=== PATIENT | female | born 1935 | race Caucasian/White ===

== ENCOUNTER 2016-05-25 12:08 | Inpatient (IN) | payer BC, OTHER ==
--- NOTE | ~2016-05-25 | CN ---
Consultation Report [facility] [address] [place]. [address] NAME: NAV OCONNOR : 37 STATUS : ADM IN [facility]#: [id number] AGE: 81 ADM/REG DATE : 05/25/16 MR#: [id number] REPORT SERV DATE: 05/29/16 DICTATED BY: ADRIANA DOE DATE: 05/29/16 REPORT STATUS : Draft TRANSCRIBED BY: MODL DATE: 05/29/16 INFECTIOUS DISEASE CONSULTATION DATE OF CONSULTATION: 05/29/2016 REASON FOR CONSULTATION: Positive blood cultures. HISTORY OF PRESENT ILLNESS: This is an 81-year-old female with a past medical history notable for oxygen-dependent COPD, coronary artery disease with previous stents, hypertension, known mitral regurgitation, hyperlipidemia, and congestive heart failure. She was brought to the emergency department at [facility] on 05/25/2016 with left chest pain and shortness of breath for about three days. The pain involves her anterior and posterior chest and neck and was somewhat pleuritic. The patient underwent CT angiography of the chest, which demonstrated a large left lower lobe pulmonary emboli. There was a minimal airspace disease in the lingula and posterior aspect of the left lower lobe along with some mildly enlarged mediastinal and hilar lymph nodes compared to 12/2010. The patient was placed on anticoagulation. Her procalcitonin on admission was less than 0.05 and her white blood cell count was 8.5. She did have a temperature of 99.9. Her admission blood cultures returned with both sets positive for gram-positive cocci in clusters, and she was started on vancomycin on 05/27/2016 along with ceftriaxone. These have been identified as Staph hominis, oxacillin resistant. The patient has had no fever since admission. Her white blood cell count is normal. She does have an episodic cough, sometimes productive of small clots. Overall, she feels better than on admission. She denies any recent skin or soft tissue infection such as boils, abscesses, or cellulitis and denies any problems with previous IV sites on old admissions. PAST MEDICAL HISTORY: As outlined above. In addition, there is a history of restless legs syndrome. She has had an appendectomy, cholecystectomy, tubal surgery, hysterectomy, and right ankle surgery. She has no hardware other than her stents. ALLERGIES: INCLUDE LITHIUM AND NAPROXEN. PRESENT MEDICATIONS: In addition to vancomycin include Eliquis, aspirin, Coreg, Klonopin, Imdur, Prinivil, melatonin, Solu-Medrol 125 mg IV q.6 hours, Habitrol, Roxicodone, Protonix, Pravachol, Desyrel, and Effexor XR. The ceftriaxone has been discontinued. SOCIAL HISTORY: Past smoker. Nondrinker. She lives with her daughter and grandson. FAMILY HISTORY: Notable for breast and ovarian cancer. REVIEW OF SYSTEMS: No nausea, vomiting, diarrhea, or genitourinary symptoms. She states that she did have some anorexia, and prior to admission, she has had a little bit of an episodic headache nothing severe. Consultation Report [place] [id number] [facility] [place]. [address] NAME: NAV OCONNOR : 37 STATUS : ADM IN [facility]#: [id number] AGE: 81 ADM/REG DATE : 05/25/16 MR#: [id number] REPORT SERV DATE: 05/29/16 DICTATED BY: ADRIANA DOE DATE: 05/29/16 REPORT STATUS : Draft TRANSCRIBED BY: BARRINGTON DATE: 05/29/16 PHYSICAL EXAMINATION: VITAL SIGNS: The patient weighs 57 kg. She is afebrile. Blood pressure 170/74, pulse 78, and respiratory rate 18. GENERAL: She is alert, pleasant, no acute distress at all. HEAD AND NECK: Exam shows normal conjunctivae without petechiae. The oral cavity is clear. Neck is supple. No adenopathy. LUNGS: Clear to auscultation. CARDIAC: Regular rate and rhythm. There is a 2/6 systolic murmur heard at left sternal border and aortic area. No rub. ABDOMEN: Soft, nontender. Bowel sounds are present. EXTREMITIES: Show no stigmata of endocarditis. The patient has a peripheral IV without phlebitis. SKIN: Without rash. LABORATORY STUDIES: White blood cell count 6.8, hemoglobin 10.9, platelets 210. Creatinine 0.86. Liver function tests on admission were normal. Blood cultures were repeated on , although this was after antibiotics were started, and those are negative. Urinalysis on admission negative. Influenza screen on admission negative. IMAGING STUDIES: As noted. IMPRESSION: I believe the positive blood cultures for Staphylococcus hominis are most likely contaminants. These were drawn in the emergency department. The time of collection is different on the two sets, but I am not convinced there from two separate sticks. More importantly, her history is not really strongly suggestive that she came in with bacteremia/sepsis, and she does not really have a clear predisposition or risk factors to have true coagulase-negative Staphylococcal sepsis. She does have a murmur, but this is old, and she has no known mitral regurgitation. Overall, I doubt endocarditis. Also, I do not think she has pneumonia. PLAN: 1. We will discontinue the vancomycin. 2. Await echocardiogram report. 3. Consider tapering her steroids. 4. If she develops any signs or symptoms of infection off antibiotics, we can repeat blood cultures at that time. ALE/BARRINGTON Adriana Doe M.D. Consultation Report [address] [address] NAME: NAV OCONNOR : 36 STATUS : ADM IN PAT#: [id number] AGE: 81 ADM/REG DATE : 05/25/16 MR#: [id number] REPORT SERV DATE: 05/29/16 DICTATED BY: ADRIANA DOE DATE: 05/29/16 REPORT STATUS : Draft TRANSCRIBED BY: BARRINGTON DATE: 05/29/16 / [id number] CC: Hardy Avila Jr, ANTONIA VAUGHAN
--- NOTE | ~2016-05-25 | DS ---
Discharge Summary [facility] [address] [place]. [address] NAME: NAV OCONNOR : 37 STATUS : DIS IN PAT#: [id number] AGE: 81 ADM/REG DATE : 05/25/16 MR#: [id number] REPORT SERV DATE: 05/31/16 DICTATED BY: JR. AVILA WILLIAM JOHN DATE: 05/30/16 REPORT STATUS : Draft TRANSCRIBED BY: BARRINGTON DATE: 05/30/16 ADMISSION DATE: 05/25/2016 DISCHARGE DATE: 05/30/2016 DISCHARGE DIAGNOSES: 1. Coag-negative staph blood cultures positive, thought to be contaminant with negative followup cultures. 2. Acute pulmonary embolism. 3. Chronic obstructive pulmonary disease without exacerbation. 4. Chronic systolic heart failure. 5. Chronic hypoxic respiratory failure, on home oxygen. 6. Coronary artery disease with stent. 7. Essential hypertension. 8. Depression and anxiety. 9. Gastroesophageal reflux disease. 10.Anxiety. OPERATIONS/PROCEDURES AND TREATMENTS: Include: 1. PA and lateral chest x-ray done 05/25/2016 which showed chronic bronchitis/COPD with focus of atelectasis in the lingula. 2. CT angiogram of the chest done 05/25/2016 which showed large left lower lobe pulmonary emboli. There were no emboli in the main pulmonary arteries, within the right pulmonary artery. There were small regions of airspace disease and consolidation in lingula. There was new mildly enlarged mediastinal hilar lymph nodes. Differential diagnosis would include reactive inflammatory infection, metastatic lymphoma, leukemia. 3. Chronic obstructive pulmonary disease with interstitial fibrosis. 4. Blood cultures done 05/25/2016, 4 of 4 bottles grew Staph hominis/coag-negative Staph. Followup cultures on 05/28/2016 were no growth and 05/29/2016 were no growth. 5. Echocardiogram done 05/29/2016 showed left ventricular systolic function intact with an ejection fraction of 55%, unchanged from February with mild left ventricular hypertrophy, mild diastolic dysfunction with left atrial dilation. The right ventricle systolic function was intact. There is mild to moderate aortic regurgitation and moderate mitral regurgitation which is unchanged from prior. DISCHARGE MEDICATIONS: Include: 1. Eliquis 10 mg orally twice a day for seven days, then 5 mg twice a day for 6-12 months. 2. Aspirin 81 mg daily. 3. Coreg 12.5 twice a day. 4. Imdur 30 mg orally daily. 5. Lisinopril 5 mg orally twice a day. 6. Melatonin 10 mg sublingually as needed. 7. Protonix 40 mg daily. 8. Pravachol 40 mg daily. 9. Trazodone 150 mg at bedtime. 10.Effexor XR 150 mg orally daily. 11.Klonopin 1 mg three times a day. Discharge Summary [place] [address] [place]. [address] NAME: NAV OCONNOR : 37 STATUS : DIS IN PAT#: [id number] AGE: 81 ADM/REG DATE : 05/25/16 MR#: [id number] REPORT SERV DATE: 05/31/16 DICTATED BY: JR. AVILA WILLIAM JOHN DATE: 05/30/16 REPORT STATUS : Draft TRANSCRIBED BY: BARRINGTON DATE: 05/30/16 12.Oxycodone 10 mg four times a day. 13.Meprobamate 400 mg four times a day. 14.Spiriva HandiHaler daily. 15.Symbicort 160/4.5 two puffs twice a day. 16.Prednisone 40 for three days, 20 for three days, 10 for three days, then none. 17.Combivent two puffs q.6 hours. 18.Norvasc 10 daily. HOSPITAL COURSE: The patient was an 81-year-old female with a history of coronary disease, COPD, chronic hypoxia, chronic systolic heart failure, presented to emergency room with complaint of chest pain, shortness of breath. The patient had been in her usual state of health until three days prior when she awakened with chest pain, rated as 8 to 9/10, constant with no aggravating or alleviating factors. The pain did not worsen with inspiration or deep breath, and she presented to the emergency room for further help. Exam was remarkable for temperature of 99.9, heart rate 74, respiratory rate 17, blood pressure 133/71, saturations at 94% on 4 L. The patient is on 3 L chronically. Exam was otherwise largely unremarkable. CT angiogram of the chest did show pulmonary emboli as above. The patient was admitted to the Clinical Decision Unit initially for acute pulmonary embolism. She was initially placed on low-molecular weight heparin, was transitioned to apixaban, which she tolerated well. workday manager who saw her have arranged the payment and confirmed this is a reasonable cost for the patient. Regarding the patient's positive blood cultures, she was initially on vancomycin and Rocephin. She had 4 of 4 bottles which eventually grew Staph hominis, which is a coag- negative staph. The patient had followup blood cultures x2 that were negative. Also had a transthoracic echocardiogram which showed no evidence of endocarditis. She was seen in consultation by Dr. Tayo Doe who felt this likely was a contaminant. All antibiotics were stopped. The patient had no evidence of further infection. Regarding the patient's COPD, she was placed initially on IV Solu-Medrol, transitioned to prednisone, will have a taper and continue her home medications. The remainder of the patient's health problems were stable and were not addressed. For discharge exam and laboratory, please see daily progress note. DISCHARGE DIET: As prior. ACTIVITY: As tolerated. She is chronically on 3 L oxygen by nasal cannula. FOLLOWUP: The patient will follow up with her primary care provider, Pratibha Mart, in one week. FOLLOWUP ISSUES: Follow up to ensure that the remaining blood cultures all came back negative. This discharge took 40 minutes for patient encounter, coordination of care, and documentation. Discharge Summary [address] [address] NAME: NAV OCONNOR : 37 STATUS : DIS IN LOCATED WITHIN [facility]#: [id number] AGE: 81 ADM/REG DATE : 05/25/16 MR#: [id number] REPORT SERV DATE: 05/31/16 DICTATED BY: JR. AVILA WILLIAM JOHN DATE: 05/30/16 REPORT STATUS : Draft TRANSCRIBED BY: BARRINGTON DATE: 05/30/16 SYBIL/BARRINGTON Hardy Avila Jr, MD / [id number] CC: Hardy Avila Jr, MD Amy Covington
--- NOTE | ~2016-05-25 | HP ---
History And Physical [facility] [address] [place]. [address] NAME: NAV SUMNER : 37 STATUS : ADM [place] PAT#: [id number] AGE: 81 ADM/REG DATE : 05/25/16 MR#: [id number] REPORT SERV DATE: 05/26/16 DICTATED BY: MAXIME CHRISTIANSON DATE: 05/25/16 REPORT STATUS : Draft TRANSCRIBED BY: MODL DATE: 05/25/16 DATE OF ADMISSION: 05/25/2016 CHIEF COMPLAINT: Chest pain and shortness of breath. HISTORY OF PRESENT ILLNESS: This is an 81-year-old female with a history of coronary artery disease; COPD; chronic hypoxemia, on continuous oxygen at home at 3 L/minute; history of systolic congestive heart failure, who presents to the emergency room at [facility] with the above-mentioned complaint. History is obtained from the patient and her daughter, who is at bedside, and reviewing data available on the Motility Count system. According to Mrs. Sumner, she had been in her usual state of health until about three days ago when she woke up with chest pain. Pain was on the left side, going down and around all the way to the back of her chest. She says pain was 8 to 9 over 10, constant with no aggravating or relieving factors. She feels even deep inspiration or coughing did not worsen her pain. She took her respiratory treatments and other medications that she is on. Did not have any fevers, chills, or any other symptoms. She did not have cough. She has chronic hypoxemia and COPD, and has exertional dyspnea anyway, is on continuous oxygen at home at 3 L/minute. However, today, she felt her pain was not getting any better, and decided to come to the emergency room to be evaluated. In the emergency room, initial workup including a CTA of the chest showed large pulmonary embolism on the left side and Hospitalist Service is asked to admit her for further evaluation and treatment. At the time of my evaluation, she was relieved of her chest pain after she had reached the emergency room. She denied any palpitations or orthopnea. She had no cough, hemoptysis, night sweats, or weight loss. She denied any recent falls or loss of consciousness. No history of fevers, chills. She did have some nausea without any vomiting or diarrhea. No history of recent hematemesis, hematochezia, or hematuria. No dysuria. No other history of recent travel or exposures other than those mentioned above. On asking her daughter, she admits that her mother has been brisk and active a week or two prior to this happening. PAST MEDICAL HISTORY: Significant for history of COPD with chronic hypoxic respiratory failure, on chronic supplemental oxygen therapy at 3 L/minute; history of coronary artery disease with stent placement; essential hypertension; history of CVA and TIA in the past; gastroesophageal reflux disease; depression and anxiety; osteoarthritis; history of systolic congestive heart failure with an ejection fraction of 40% to 45%; history of restless legs syndrome; and fracture of the right radius. She has also had cholecystectomy, appendectomy, and hysterectomy. SOCIAL HISTORY: She has about [id number] history of smoking. Denies alcohol use or recreational drug use. 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 FAMILY HISTORY: Noncontributory. History And Physical [address] [address] NAME: NAV SUMNER : 37 STATUS : ADM [place] PAT#: [id number] AGE: 81 ADM/REG DATE : 05/25/16 MR#: [id number] REPORT SERV DATE: 05/26/16 DICTATED BY: MAXIME CHRISTIANSON DATE: 05/25/16 REPORT STATUS : Draft TRANSCRIBED BY: BARRINGTON DATE: 05/25/16 MEDICATIONS: Her medications at home were reviewed by me in the chart today and reordered by me. REVIEW OF SYSTEMS: As in history of present illness. All other systems were reviewed in detail and are quite unremarkable. PHYSICAL EXAMINATION: GENERAL: This is a very pleasant 81-year-old, not in any acute distress. HEENT: Her head is atraumatic, normocephalic. She is alert, awake, oriented to time, place, and person. Pupils are equal, reacting to light and accommodating. External ocular muscles are intact. Membranes are moist and pink. Sclerae are nonicteric. NECK: Supple with no jugular venous distention, lymphadenopathy, or thyromegaly. LUNGS: Auscultation of her lungs revealed few expiratory wheezes bilaterally. There was diminished air entry bilaterally. Trachea appeared to be in midline. HEART: Auscultation of her heart revealed normal rate and rhythm with no murmurs, rubs, or gallops appreciated. ABDOMEN: Soft, nontender. Bowel sounds are present. EXTREMITIES: Showed no cyanosis, clubbing, or edema. NEUROLOGIC: Grossly intact. No focal sensory or motor deficits. Higher functions appear intact. She was able to move all four extremities. VITAL SIGNS: Her vital signs today showed a temperature of 99.9 degrees Fahrenheit, pulse 74, respirations 17 a minute, blood pressure was 133/71, oxygen saturations were 94% breathing 4 L of oxygen via nasal cannula. LABORATORY DATA: Reviewed on the Motility Count system showed a pH of 7.39 on arterial blood gas, pCO2 was 45, PaO2 of 89, and bicarb was 26.4, this was on 4 L via nasal cannula. CMP was essentially normal. Blood glucose was 136, calcium 8.4, and magnesium 1.9. Her troponin today was 0.03. CBC showed a normal white blood cell count, hemoglobin was 11, hematocrit 34.5, and platelet count was 165,000. Her prothrombin time was 14.1 with an INR of 1.1 today. Influenza A and B were negative. Urinalysis was grossly unremarkable. Films of the chest x-ray and CTA of the chest were reviewed by me on the PACS today and interpreted by me. Per my interpretation, there is normal bony architecture with no lobar consolidations or pleural effusions seen on the chest x-ray. CTA of the chest, films were reviewed by me on the PACS today and official radiology report was also reviewed. There is large left lower lobe pulmonary embolus without any in the main pulmonary arteries or on the right side. There is also small regions of airspace disease with consolidation in the lingula and posterior aspect of the left lower lobe. There are mildly enlarged mediastinal and hilar lymph nodes as well. She has emphysema as well. Please see report for details. IMPRESSION: 1. Chest pain. 2. Acute pulmonary embolism. 3. Chronic obstructive pulmonary disease with acute exacerbation. 4. Systolic congestive heart failure. 5. Chronic hypoxemia, on continuous oxygen therapy at home. History And Physical [address] [place]. [address] NAME: NAV SUMNER : 37 STATUS : ADM [place] PAT#: [id number] AGE: 81 ADM/REG DATE : 05/25/16 MR#: [id number] REPORT SERV DATE: 05/26/16 DICTATED BY: MAXIME CHRISTIANSON DATE: 05/25/16 REPORT STATUS : Draft TRANSCRIBED BY: BARRINGTON DATE: 05/25/16 6. Coronary artery disease with stent placement. 7. Essential hypertension. 8. Depression and anxiety. 9. Gastroesophageal reflux disease. PLAN: We will admit Ms. Sumner to the Hospitalist Service with cardiac telemetry for a 24- hour observation period. We will start her on low molecular weight heparin in a therapeutic dose, reevaluate in the morning, and proceed from there. We will start her on bronchodilator treatments, continue supplemental oxygen therapy, and also start her on inhaled corticosteroids as well. We will replace magnesium at this time, follow chemistry in the morning along with electrolytes and CBC. We will continue all other medications and treatments at this time. I have discussed the above treatment with the patient and her daughter. Plan of care was discussed and they are agreeable to the above recommendations. Hospitalist Service will be following her during her stay here. /BARRINGTON Maxime Christianson M.D. / [id number] CC: Hardy Avila Jr, MD
[~2016-05-25 12:08] MED LIST: *HOMEMEDS; ADVAIR250 INH; AMB10 PO; ASA5GR PO; ASAB PO; B1100 PO; B121000P IM; BRILINTA90 MG PO; COREG12 PO; DALMANE30 MG OR; DULERA 100 MCG/13 GM INH; EFFEX75 PO; EFFEXOR XR150 MG PO; HUMI PO; IMDUR30 PO; IMOD PO; KLONO1 PO; LOM PO; LORTAB10 PO; MAALOX PO; MEPROBAMATE 40400 MG OR; MEPROBAMATE 40400 MG PO; MEPROBAMATE400 MG PO; MSCONTIN PO; NITROSTAT0.4 MG SL; NORCO1 TAB PO; NORV5 PO; OXYCOD PO; OXYCON10 PO; OXYCONTIN15 MG PO; PLAVIX PO; PRAVAC PO; PRAVACHOL40 MG PO; PRIN20 PO; PRIN5 PO; PROAIR HFA INH; PROCHLORPERAZINE; PROTONIX PO; PROZAC40 MG PO; RAN500 PO; SPIRIVA INH; SYMBICORT 80/4.1 INH INH; TIGER BALM TOP; TRAZ50 PO; TRAZODONE150 MG PO; XANAX1 MG PO; ZANAFLEX 4 MG TA4 MG PO
[2016-05-25 12:35] LABS: BASOPHILS 0.1 %; BASOPHILS ABSOLUTE 0.01 10/3/uL (0.0-0.16); EOSINOPHILS 1.3 %; EOSINOPHILS ABSOLUTE 0.11 10/3/uL (0.0-0.53); HEMATOCRIT 34.5 % (36.0-48.0); IMMATURE GRANULOCYTES 0.1 %; IMMATURE GRANULOCYTES ABSOLUTE 0.01 10/3/uL (0.0-0.11); LYMPHOCYTES 11.6 %; LYMPHOCYTES ABSOLUTE 0.98 10/3/uL (0.67-4.30); MEAN CORPUS HGB CONC 31.9 g/dL (32.0-36.0); MEAN CORPUSCULAR HEMOGLOB 29.1 pg (26.0-34.0); MEAN CORPUSCULAR VOLUME 91.3 fL (80-100); MEAN PLATELET VOLUME 8.7 fL (9.2-13.0); MONOCYTES 12.5 %; MONOCYTES ABSOLUTE 1.06 10/3/uL (0.21-1.20); NEUTROPHILS 74.4 %; NEUTROPHILS ABSOLUTE 6.31 10/3/uL (2.02-8.40); RBC DISTRIBUTION WIDTH 14.4 % (12.0-16.0); RED CELL COUNT 3.78 10/6/uL (4.0-5.6); WHITE BLOOD CELLS 8.5 10/3/uL (4.5-10.5)
[2016-05-25 12:37] LABS: PLATELET COUNT 165 10/3/uL (150-400)
[2016-05-25 12:38] LABS: MANUAL DIFF NO %
[2016-05-25 12:42] LABS: INTERNATIONAL NORMAL RATI 1.1 UNITS (-); PARTIAL THROMBO TIME 29.4 SEC (22.5-37.2); PROTIME (NOT ORD) 14.1 SEC (12.0-14.5)
[2016-05-25 12:53] LABS: CALCIUM, SERUM 8.4 MG/DL (8.5-10.4); CHEST PAIN PROFILE TAT 0 Hrs 22 Mins; CHLORIDE, SERUM 102 MMOL/L (96-112); CO2 (CARBON DIOXIDE) 32 MMOL/L (24-34); CREATININE 0.81 MG/DL (0.55-1.02); GFR AFRICAN AMERICAN 80 ML/MIN (>=60); GFR NON AFRICAN AMERICAN 69 ML/MIN (>=60); POTASSIUM, SERUM 4.3 MMOL/L (3.5-5.3); SODIUM, SERUM 142 MMOL/L (135-148); TROPONIN I 0.03 NG/ML (<0.05)
[2016-05-25 12:59] LABS: BUN (BLOOD UREA NITROGEN) 14 MG/DL (6-23); GLUCOSE, SERUM 136 MG/DL (60-99)
[2016-05-25 16:00] LABS: ALLENS TEST Pos; BE (BASE EXCESS) 1.5 MEQ/L (0 +/- 2.5); CARBOXYHEMOGLOBIN 1.3 % (0-3); DEVICE NC; HCO3 (ACTUAL BICARBONATE) 26.8 MEQ/L (23-27); HEMOBLOGIN CONTENT 10.9 G/DL (12-16); INSTRUMENT SERIAL # 8087; METHEMOGLOBIN 0.3 % (0-3); O2 CONTENT 14.6 VOL% (18-24); OPERATOR ID 14335; PCO2 (CO2 TENSION) 45 MMHG (35-45); PO2 (O2 TENSION) 89 MMHG (79-93); SAMPLE Arterial; pH 7.39 (7.37-7.43)
[2016-05-25 16:17] LABS: ASCORBIC ACID (UR NOT ORDER) NEG (NEG); BILIRUBIN, URINE NEGATIVE (NEG); ER URINALYSIS TAT 0 Hrs 19 Mins; KETONE, URINE NEGATIVE (NEG); LEUKOCYTE ESTERASE(NOT OR NEG (NEG); NITRITE (URINE) NEG (NEG); WBC (NOT ORDERED) (RFLEX) 3 (0-5)
[2016-05-25 16:22] LABS: ALBUMIN 3.1 G/DL (3.5-5.0); ALKALINE PHOSPHATASE 86 U/L (45-117); DIRECT BILIRUBIN 0.2 MG/DL (0.0-0.4); INDIRECT BILIRUBIN(NOT ORDER) 0.4 MG/DL (0.1-0.9); SGOT(AST) 13 U/L (5-40); SGPT(ALT) 15 U/L (5-65); TOTAL BILIRUBIN 0.6 MG/DL (0-1.2); TOTAL PROTEIN 6.5 G/DL (6.0-8.5)
[2016-05-25 16:39] LABS: PROCALCITONIN <0.05 ng/mL (<0.5)
[2016-05-25 16:45] LABS: INFLUENZA A SCREEN NEGATIVE (NEGATIVE); INFLUENZA B SCREEN NEGATIVE (NEGATIVE)
[2016-05-25] MEDS ORDERED: EFFEXOR XR150 MG PO (20:07)
[2016-05-25] MEDS ORDERED: OXYCOD PO (20:11)
[2016-05-25] MEDS ORDERED: MEPROBAMATE400 MG PO (20:12)
[2016-05-25] MEDS ORDERED: IMDUR30 PO (20:12)
[2016-05-25] MEDS ORDERED: PRIN5 PO (20:12)
[2016-05-25] MEDS ORDERED: COREG12 PO (20:13)
[2016-05-25] MEDS ORDERED: ASAB PO (20:13)
[2016-05-25] MEDS ORDERED: KLONO1 PO (20:14)
[2016-05-25] MEDS ORDERED: PROTONIX PO (20:15)
[2016-05-25] MEDS ORDERED: SYMBICORT 160/41 INH INH (20:15)
[2016-05-25] MEDS ORDERED: PRAVACHOL40 MG PO (20:15)
[2016-05-25] MEDS ORDERED: TRAZODONE150 MG PO (20:15)
[2016-05-25] MEDS ORDERED: SPIRIVA INH (20:15)
[2016-05-25] MEDS ORDERED: NITROSTAT0.4 MG SL (20:15)
[2016-05-25] MEDS ORDERED: MELATONIN10 M2 SL (20:19)
[2016-05-26 05:12] LABS: BASOPHILS 0 %; EOSINOPHILS 0 %; HEMATOCRIT 35.7 % (36.0-48.0); HEMOGLOBIN 11.5 g/dL (12.0-16.0); IMMATURE GRANULOCYTES 0.3 %; IMMATURE GRANULOCYTES ABSOLUTE 0.02 10/3/uL (0.0-0.11); LYMPHOCYTES 6.8 %; LYMPHOCYTES ABSOLUTE 0.47 10/3/uL (0.67-4.30); MEAN CORPUS HGB CONC 32.2 g/dL (32.0-36.0); MEAN CORPUSCULAR HEMOGLOB 29.2 pg (26.0-34.0); MEAN CORPUSCULAR VOLUME 90.6 fL (80-100); MEAN PLATELET VOLUME 9.6 fL (9.2-13.0); MONOCYTES 1.6 %; MONOCYTES ABSOLUTE 0.11 10/3/uL (0.21-1.20); NEUTROPHILS 91.3 %; NEUTROPHILS ABSOLUTE 6.31 10/3/uL (2.02-8.40); PLATELET COUNT 175 10/3/uL (150-400); RBC DISTRIBUTION WIDTH 14.1 % (12.0-16.0); RED CELL COUNT 3.94 10/6/uL (4.0-5.6); WHITE BLOOD CELLS 6.9 10/3/uL (4.5-10.5)
[2016-05-26 05:13] LABS: MANUAL DIFF NO %
[2016-05-26 05:35] LABS: BUN (BLOOD UREA NITROGEN) 14 MG/DL (6-23); CHLORIDE, SERUM 103 MMOL/L (96-112); CO2 (CARBON DIOXIDE) 32 MMOL/L (24-34); CREATININE 0.76 MG/DL (0.55-1.02); GFR AFRICAN AMERICAN 86 ML/MIN (>=60); GFR NON AFRICAN AMERICAN 74 ML/MIN (>=60); PHOSPHORUS, SERUM 2.8 MG/DL (2.5-4.5); SODIUM, SERUM 144 MMOL/L (135-148)
[2016-05-26 05:40] LABS: GLUCOSE, SERUM 169 MG/DL (60-99)
[2016-05-27 05:31] LABS: BASOPHILS 0 %; EOSINOPHILS 0 %; HEMATOCRIT 35.8 % (36.0-48.0); HEMOGLOBIN 11.5 g/dL (12.0-16.0); IMMATURE GRANULOCYTES 0.3 %; IMMATURE GRANULOCYTES ABSOLUTE 0.03 10/3/uL (0.0-0.11); LYMPHOCYTES 4.7 %; LYMPHOCYTES ABSOLUTE 0.52 10/3/uL (0.67-4.30); MEAN CORPUS HGB CONC 32.1 g/dL (32.0-36.0); MEAN CORPUSCULAR VOLUME 90.4 fL (80-100); MEAN PLATELET VOLUME 10.6 fL (9.2-13.0); MONOCYTES 3.2 %; MONOCYTES ABSOLUTE 0.35 10/3/uL (0.21-1.20); NEUTROPHILS 91.8 %; NEUTROPHILS ABSOLUTE 10.11 10/3/uL (2.02-8.40); RBC DISTRIBUTION WIDTH 14.3 % (12.0-16.0); RED CELL COUNT 3.96 10/6/uL (4.0-5.6)
[2016-05-27 05:32] LABS: MANUAL DIFF NO %; PLATELET COUNT 231 10/3/uL (150-400)
[2016-05-28 04:35] LABS: BASOPHILS 0 %; EOSINOPHILS 0 %; HEMATOCRIT 33.8 % (36.0-48.0); HEMOGLOBIN 10.9 g/dL (12.0-16.0); IMMATURE GRANULOCYTES 0.3 %; IMMATURE GRANULOCYTES ABSOLUTE 0.03 10/3/uL (0.0-0.11); LYMPHOCYTES 4.4 %; MEAN CORPUS HGB CONC 32.2 g/dL (32.0-36.0); MEAN CORPUSCULAR HEMOGLOB 29.1 pg (26.0-34.0); MEAN CORPUSCULAR VOLUME 90.1 fL (80-100); MEAN PLATELET VOLUME 9.8 fL (9.2-13.0); MONOCYTES 2.7 %; MONOCYTES ABSOLUTE 0.24 10/3/uL (0.21-1.20); NEUTROPHILS 92.6 %; NEUTROPHILS ABSOLUTE 8.34 10/3/uL (2.02-8.40); PLATELET COUNT 208 10/3/uL (150-400); RBC DISTRIBUTION WIDTH 14.7 % (12.0-16.0); RED CELL COUNT 3.75 10/6/uL (4.0-5.6)
[2016-05-28 04:42] LABS: MANUAL DIFF NO %
[2016-05-28 09:40] LABS: CALCIUM, SERUM 8.5 MG/DL (8.5-10.4); CHLORIDE, SERUM 103 MMOL/L (96-112); CO2 (CARBON DIOXIDE) 33 MMOL/L (24-34); CREATININE 0.94 MG/DL (0.55-1.02); GFR AFRICAN AMERICAN 66 ML/MIN (>=60); GFR NON AFRICAN AMERICAN 57 ML/MIN (>=60); SODIUM, SERUM 145 MMOL/L (135-148)
[2016-05-28 09:41] LABS: BUN (BLOOD UREA NITROGEN) 26 MG/DL (6-23); GLUCOSE, SERUM 134 MG/DL (60-99)
[2016-05-29 05:38] LABS: BASOPHILS 0 %; EOSINOPHILS 0 %; HEMATOCRIT 33.6 % (36.0-48.0); HEMOGLOBIN 10.9 g/dL (12.0-16.0); IMMATURE GRANULOCYTES 0.4 %; IMMATURE GRANULOCYTES ABSOLUTE 0.03 10/3/uL (0.0-0.11); LYMPHOCYTES 6.8 %; LYMPHOCYTES ABSOLUTE 0.46 10/3/uL (0.67-4.30); MEAN CORPUS HGB CONC 32.4 g/dL (32.0-36.0); MEAN CORPUSCULAR HEMOGLOB 29.2 pg (26.0-34.0); MEAN CORPUSCULAR VOLUME 90.1 fL (80-100); MEAN PLATELET VOLUME 9.5 fL (9.2-13.0); MONOCYTES 2.8 %; MONOCYTES ABSOLUTE 0.19 10/3/uL (0.21-1.20); NEUTROPHILS ABSOLUTE 6.08 10/3/uL (2.02-8.40); PLATELET COUNT 210 10/3/uL (150-400); RBC DISTRIBUTION WIDTH 14.2 % (12.0-16.0); RED CELL COUNT 3.73 10/6/uL (4.0-5.6); WHITE BLOOD CELLS 6.8 10/3/uL (4.5-10.5)
[2016-05-29 05:40] LABS: MANUAL DIFF NO %
[2016-05-29 05:54] LABS: BUN (BLOOD UREA NITROGEN) 25 MG/DL (6-23); CALCIUM, SERUM 8.3 MG/DL (8.5-10.4); CHLORIDE, SERUM 105 MMOL/L (96-112); CO2 (CARBON DIOXIDE) 35 MMOL/L (24-34); CREATININE 0.86 MG/DL (0.55-1.02); GFR AFRICAN AMERICAN 74 ML/MIN (>=60); GFR NON AFRICAN AMERICAN 64 ML/MIN (>=60); POTASSIUM, SERUM 3.9 MMOL/L (3.5-5.3); SODIUM, SERUM 143 MMOL/L (135-148)
[2016-05-29 05:56] LABS: GLUCOSE, SERUM 174 MG/DL (60-99)
[2016-05-30 05:41] LABS: BASOPHILS 0 %; EOSINOPHILS 0 %; HEMATOCRIT 32.6 % (36.0-48.0); HEMOGLOBIN 10.8 g/dL (12.0-16.0); IMMATURE GRANULOCYTES 0.8 %; IMMATURE GRANULOCYTES ABSOLUTE 0.06 10/3/uL (0.0-0.11); LYMPHOCYTES 6.7 %; LYMPHOCYTES ABSOLUTE 0.48 10/3/uL (0.67-4.30); MEAN CORPUS HGB CONC 33.1 g/dL (32.0-36.0); MEAN CORPUSCULAR VOLUME 87.4 fL (80-100); MEAN PLATELET VOLUME 9.4 fL (9.2-13.0); MONOCYTES 4.3 %; MONOCYTES ABSOLUTE 0.31 10/3/uL (0.21-1.20); NEUTROPHILS 88.2 %; NEUTROPHILS ABSOLUTE 6.35 10/3/uL (2.02-8.40); PLATELET COUNT 217 10/3/uL (150-400); RBC DISTRIBUTION WIDTH 14.5 % (12.0-16.0); RED CELL COUNT 3.73 10/6/uL (4.0-5.6); WHITE BLOOD CELLS 7.2 10/3/uL (4.5-10.5)
[2016-05-30 05:48] LABS: MANUAL DIFF NO %
[2016-05-30 05:51] LABS: BUN (BLOOD UREA NITROGEN) 26 MG/DL (6-23); CALCIUM, SERUM 8.1 MG/DL (8.5-10.4); CHLORIDE, SERUM 103 MMOL/L (96-112); CO2 (CARBON DIOXIDE) 35 MMOL/L (24-34); GFR AFRICAN AMERICAN 70 ML/MIN (>=60); GFR NON AFRICAN AMERICAN 60 ML/MIN (>=60); GLUCOSE, SERUM 240 MG/DL (60-99); POTASSIUM, SERUM 4.3 MMOL/L (3.5-5.3); SODIUM, SERUM 141 MMOL/L (135-148)
[2016-05-30] MEDS ORDERED: NORV10 PO (12:56)
[2016-05-30] MEDS ORDERED: COMBIVENT RESPIM4 GM INH (12:57)
[2016-05-30] MEDS ORDERED: P10 (12:57)
[2016-05-30] MEDS ORDERED: ELIQUIS (12:58)
== END 2016-05-30 14:58 | disposition home or self-care (01) | DRG 176 ==
LOC: ER 12:08 → CDU1 20:17 → CDU2 21:11 → 2SO 05-28 11:07
PROVIDERS: Emergency Medicine; Hospitalist; Internal Medicine
DX: I26.99 Other pulmonary embolism without acute cor pulmonale (principal); J96.11 Chronic respiratory failure with hypoxia; I50.22 Chronic systolic (congestive) heart failure; J44.1 Chronic obstructive pulmonary disease with (acute) exacerbation; B95.7 Other staphylococcus as the cause of diseases classified elsewhere; I25.10 Atherosclerotic heart disease of native coronary artery without angina pectoris; R09.02 Hypoxemia; K21.9 Gastro-esophageal reflux disease without esophagitis; F41.9 Anxiety disorder, unspecified; F32.9 Major depressive disorder, single episode, unspecified; M19.90 Unspecified osteoarthritis, unspecified site; G25.81 Restless legs syndrome; I34.0 Nonrheumatic mitral (valve) insufficiency; I35.1 Nonrheumatic aortic (valve) insufficiency; Z95.5 Presence of coronary angioplasty implant and graft; Z99.81 Dependence on supplemental oxygen; Z88.8 Allergy status to other drugs, medicaments and biological substances
CPT/HCPCS: 36600; 71020; 71275; 80048; 80076; 81001; 82805; 83690; 83735; 84100; 84145; 84484; 85025; 85610; 85730; 87040; 87077; 87150; 87186; 87804; 93005; 93306; 94640; 96365; 96372; 96375; 99285; A9270-GY; J0360; J2930; J3370; Q9967